=== PATIENT | female | born 1975 | race Hispanic/Latino ===

== ENCOUNTER 2020-02-21 02:02 | Emergency (ER) | payer OTHER ==
[2020-02-21 02:22] LABS: APPEARANCE,URINE CLEAR (CLEAR); BILIRUBIN,URINE NEGATIVE (NEGATIVE); COLOR,URINE YELLOW (YELLOW); GLUCOSE, URINE (UA) NEGATIVE (NEGATIVE); KETONES,URINE NEGATIVE (NEGATIVE); LEUKOCYTE ESTERASE ,URINE NEGATIVE (NEGATIVE); NITRATE,URINE NEGATIVE (NEGATIVE); OCCULT BLOOD,URINE LARGE (NEGATIVE); PH,URINE 5.5 (5.0-8.0); PROTEIN,URINE NEGATIVE (NEGATIVE); UROBILINOGEN,URINE 0.2 mg/dL (0.2-1.0)
[2020-02-21] MEDS ORDERED: ONDANSETRON HCL 4 MG/2 ML VIAL ONE (02:29)
[2020-02-21] MEDS ORDERED: KETOROLAC TROMETHAMINE 30MG/ML ONE (02:29)
[2020-02-21 02:31] LABS: BACTERIA,URINE Few /HPF (None Seen); WBC,URINE 0-1 /HPF (0-1)
[2020-02-21 02:55] LABS: BASOPHILS % (AUTO) 0.5 % (0.0-5.0); EOSINOPHILS % (AUTO) 2.7 % (0.0-8.0); HEMATOCRIT 38.4 % (36-48); LYMPHOCYTES % (AUTO) 25.6 % (21.0-51.0); MEAN CORPUSCULAR HEMOGLOBIN 26.4 pg (27.0-33.0); MEAN CORPUSCULAR HGB CONC 32.3 g/dL (32.0-36.0); MEAN CORPUSCULAR VOLUME 81.9 fL (79-99); MONOCYTES % (AUTO) 8.9 % (3.0-13.0); PLATELET COUNT (AUTO) 346 K/uL (130-400); RED BLOOD CELL COUNT(AUTO) 4.69 MIL/uL (4.00-5.50); RED CELL DISTRIBUTION WIDTH 15.2 % (11.0-15.5); WHITE BLOOD COUNT (AUTO) 9.8 K/uL (4.8-10.8)
[2020-02-21 03:12] LABS: POTASSIUM 3.9 mmol/L (3.5-5.1)
[2020-02-21 03:13] LABS: INR 0.92 (0.85-1.15); PARTIAL THROMBOPLASTIN TIME 26.2 SEC (26.3-35.5)
[2020-02-21 03:16] LABS: ALBUMIN 3.2 g/dL (3.5-5.0); BILIRUBIN,TOTAL 0.2 mg/dL (0.2-1.0); TOTAL PROTEIN, SERUM 6.9 g/dL (6.0-8.3)
[2020-02-21] MEDS ORDERED: TAMSULOSIN HCL 0.4 MG CAP.ER.24H ONE (03:33)
[2020-02-21] MEDS ORDERED: 0.9% SODIUM CHLORIDE 1000 ML IV BAG IV ONE (12:00)
== END 2020-02-21 03:51 | disposition home or self-care (01) ==
LOC: EDH 02:02
DX: N23 Unspecified renal colic (principal); R31.9 Hematuria, unspecified; R11.2 Nausea with vomiting, unspecified; R19.7 Diarrhea, unspecified; E11.9 Type 2 diabetes mellitus without complications; I10 Essential (primary) hypertension; Z72.0 Tobacco use
CPT/HCPCS: 36415; 74176; 80053; 81001; 82550; 83690; 85025; 85610; 85730; 87088; 96361; 96374; 96375; 99284; J1885; J2405; J7030

== ENCOUNTER 2020-12-04 18:42 | Emergency (ER) | payer OTHER ==
[2020-12-04] MEDS ORDERED: ORPHENADRINE CITRATE 30 MG/ML ML ONE (19:35)
[2020-12-04] MEDS ORDERED: KETOROLAC TROMETHAMINE 30MG/ML ONE (19:35)
== END 2020-12-04 21:05 | disposition home or self-care (01) ==
LOC: EDH 18:42
DX: S63.616A Unspecified sprain of right little finger, initial encounter (principal); S29.012A Strain of muscle and tendon of back wall of thorax, initial encounter; S50.02XA Contusion of left elbow, initial encounter; E11.9 Type 2 diabetes mellitus without complications; I10 Essential (primary) hypertension; Z98.890 Other specified postprocedural states; Z72.0 Tobacco use; V89.2XXA Person injured in unspecified motor-vehicle accident, traffic, initial encounter; Y93.89 Activity, other specified; Y92.488 Other paved roadways as the place of occurrence of the external cause; Y99.8 Other external cause status
CPT/HCPCS: 73080; 73140; 96374; 96375; 99284; J1885; J2360

== ENCOUNTER 2021-09-26 16:35 | Emergency (ER) | payer OTHER ==
[~2021-09-26] VITALS: Ht 154.9 cm; Wt 104.3 kg
[2021-09-26] MEDS ORDERED: PRED20TA3 PO (17:04)
[2021-09-26] MEDS ORDERED: PREDNISONE 20 MG TABLET PO ONE (17:30)
[2021-09-26 17:32] VITALS: BP 123/63
== END 2021-09-26 17:35 | disposition home or self-care (01) ==
LOC: EDH 16:35
DX: G51.0 Bell's palsy (principal); E11.9 Type 2 diabetes mellitus without complications; I10 Essential (primary) hypertension; Z79.52 Long term (current) use of systemic steroids

== ENCOUNTER 2023-03-15 21:49 | Emergency (ER) | payer OTHER ==
[~2023-03-15] VITALS: Ht 154.9 cm; Wt 118.4 kg
[~2023-03-15 21:49] MED LIST: PRED20TA3 PO
[2023-03-15 21:58] VITALS: BP 126/72
[2023-03-15] MEDS ORDERED: IBUP-1493 PO (22:55)
[2023-03-15] MEDS ORDERED: LIDOP TD (22:55)
[2023-03-15] MEDS ORDERED: CYCL-309 PO (22:55)
[2023-03-15] MEDS ORDERED: KETOROLAC 60 MG VIAL (30MG/ML) IM ONE (23:00)
[2023-03-15] MEDS ORDERED: CYCLOBENZAPRINE HCL 10 MG TABLET PO ONE (23:00)
[2023-03-16 00:31] LABS: APPEARANCE,URINE CLOUDY (CLEAR); BILIRUBIN,URINE NEGATIVE (NEGATIVE); COLOR,URINE YELLOW (YELLOW); GLUCOSE, URINE (UA) NEGATIVE (NEGATIVE); KETONES,URINE NEGATIVE (NEGATIVE); LEUKOCYTE ESTERASE ,URINE NEGATIVE Leu/uL (NEGATIVE); NITRATE,URINE NEGATIVE (NEGATIVE); OCCULT BLOOD,URINE NEGATIVE (NEGATIVE); PH,URINE 5.5 (5.0-8.0); PROTEIN,URINE 20 mg/dL (NEGATIVE); UROBILINOGEN,URINE 0.2 mg/dL (0.2-1.0)
[2023-03-16 00:39] LABS: BACTERIA,URINE RARE /HPF (None Seen); CALCIUM OXALATE CRYSTALS,UR MANY /LPF (None Seen); MUCUS,URINE RARE LPF (None Seen); SQUAMOUS EPITHELIAL CELL,UR MANY /HPF (0-2)
== END 2023-03-16 00:38 | disposition home or self-care (01) ==
LOC: EDH 21:49
DX: R10.9 Unspecified abdominal pain (principal); R05.9 Cough, unspecified; I10 Essential (primary) hypertension; E11.9 Type 2 diabetes mellitus without complications; Z98.890 Other specified postprocedural states; F17.200 Nicotine dependence, unspecified, uncomplicated
CPT/HCPCS: 99283; 81001; 96372; J1885